=== PATIENT | female | born 1960 | race Caucasian/White ===

== ENCOUNTER 2024-05-11 11:45 | Emergency (ER) | payer MEDICARE ==
[~2024-05-11] VITALS: Ht 157.5 cm; Wt 58.7 kg
[2024-05-11] MEDS ORDERED: [UNRECOGNIZED DRUG - OTHER] PO (12:00)
[2024-05-11] MEDS ORDERED: LISINOPRIL10 MG PO (12:00)
[2024-05-11] MEDS ORDERED: KETOROLAC TROME10 MG (12:00)
[2024-05-11] MEDS ORDERED: FLOMAX0.4 MG PO (12:00)
[2024-05-11] MEDS ORDERED: LEVOTHYROXINE88 MCG PO (12:00)
[2024-05-11] MEDS ORDERED: ONDANSETRON ODT4 MG PO (12:00)
[2024-05-11] MEDS: SODIUM CHLORIDE 0.9% 1000ML 1,000 ML IV SCH (12:11)
[2024-05-11] MEDS: KETOROLAC TROMETHAMINE 30 MG/ML VIAL IV STA (12:16)
[2024-05-11] MEDS ORDERED: IOPAMIDOL 370 MG/ML 100 ML INFUS..BTL INJ ONE (12:48)
[2024-05-11] MEDS: LORAZEPAM INJ 2 MG/ML VIAL IV ONE (15:25)
[2024-05-11 17:49] VITALS: PULSE 127; RESP 16; TEMP 97.7; O2SAT 97
== END 2024-05-11 17:56 | disposition other institution (70) ==
LOC: FSED 11:50
DX: R31.9 Hematuria, unspecified (principal); C64.2 Malignant neoplasm of left kidney, except renal pelvis; I82.890 Acute embolism and thrombosis of other specified veins; K57.90 Diverticulosis of intestine, part unspecified, without perforation or abscess without bleeding; D35.01 Benign neoplasm of right adrenal gland
CPT/HCPCS: 74177; 80053; 81003; 85025; 96374; 96375; 99284; J1885; J2060; J7030; Q9967